=== PATIENT | female | born 1950 | race Caucasian/White ===

== ENCOUNTER → 2019-11-27 15:39 | Outpatient (REF) | payer MEDICARE, SELFPAY | LOC: OLS.ACW200 15:39 | PROVIDERS: Visit Provider Internal Medicine | DX: Z03.818 Encounter for observation for suspected exposure to other biological agents ruled out (principal) | CPT/HCPCS: 87635; U0003 ==

== ENCOUNTER → 2019-12-03 12:22 | Outpatient (REF) | payer MEDICARE, SELFPAY | LOC: OLS.ACW200 12:22 | PROVIDERS: Referring Provider Internal Medicine; Visit Provider Internal Medicine | DX: Z03.818 Encounter for observation for suspected exposure to other biological agents ruled out (principal) | CPT/HCPCS: 87635; U0003 ==